=== PATIENT | female | born 1950 | race Caucasian/White ===

== ENCOUNTER 2021-08-03 09:33 | Inpatient (IN) ==
[2021-08-03 09:51] VITALS: BMI 34.2
--- NOTE | 2021-08-03 10:49 | ED.ABDFE ---
HPI Time Seen Time Seen by Provider: 08/03/21 10:48 PCP Primary Care Physician: OBDULIA NAVA Complaint Doctors Chief Complaint Comments: 71 y/o female presents for evaluation. Having lower abdominal pain x 3 days. Cramping sensation, across lower abdomen. Wax/wanes, no radiation. Has had low grade fever. Having nausea, vomiting. Vomited a lot 3 days ago. Had some diarrhea initially. Denies urinary symptoms, with some decreased urination. Seen in [place] [facility] 2 days ago, diagnosed with diverticulosis (no -itis on CT scan). Was prescribed levaquin, but didn't not fill. Has a distant h/o diverticulitis. Chief Complaint:: PT STATES THAT SHE HAS HAD N/V/D WITH INTERMITTENT LOWER ABDOMEN CRAMPING SINCE MONDAY AFTERNOON. PT WAS SEEN IN ER IN [place] MONDAY AND DIAGNOSED WITH DIVERTICULOSIS BUT HAS NOT HAD PRESCRIPTIONS FILLED. COVID-19 Coronavirus risk:travel/contact w/high risk person: No Has patient experienced Coronavirus symptoms: No Reviewed Nurses Notes Review: Yes Source History Provided: Patient Mode of arrival Mode of Arrival: Wheelchair Timing Onset of Chief Complaint: 07/31/21 PMH PMH Past Medical History: Yes Past Medical History: Coronary Artery Disease, CVA, Diabetes and Hypertension Past Surgical History: Yes Surgical History: Past Surgical History Comment: HERNIA REPAIR X 3 Family History History of Family Medical Conditions: Yes Family Medical History: Diabetes Mellitus and Hypertension Family Medical History Comment: CVA Social History Does patient currently use any type of tobacco product: No Have you used tobacco products in the last 12 months: No Type of Tobacco Use: None Does any household member use tobacco: No Alcohol Use: None Do you use any recreational Drugs:: No Lives With: Family Lives Where: Home Infectious screening In the last 2 months have you had wt loss of >10#?: NO Have you had fever, night sweats or hemotysis?: No Have you traveled outside the country in the last 6 months?: No Isolation: Standard ROS Review of Systems Constitutional: Fever and Weakness Eyes: No Symptoms Reported ENTM: No Symptoms Reported Respiratoy: No Symptoms Reported Cardiovascular: No Symptoms Reported Gastrointestinal/Abdominal: Abdominal Pain, Nausea and Vomiting Genitourinary: No Symptoms Reported Neurological: Weakness Musculoskeletal: No Symptoms Reported Integumentary: No Symptoms Reported Hematologic/Lymphatic: No Symptoms Reported Psychiatric: No Symptoms Reported All Other Systems: Reviewed and Negative PE Vital Signs Vitals: Temperature 97.3 F Pulse Rate [Left] 62 Pulse Rate 71 Respiratory Rate 18 Blood Pressure [Left Arm] 174/76 Blood Pressure 211/85 O2 Sat by Pulse Oximetry 96 General Limitations: No Limitations General Appearance: Alert and Other (appears uncomfortable) Head Head Exam: Normal Inspection Eyes Eye exam: PERRL and EOMI ENT ENT Exam: Normal Exam and Mucous Membranes Moist Neck Neck Exam: Normal Inspection and Full ROM Chest Chest Inspection: Normal Inspection Respiratory Respiratory Exam: Normal Lung Sounds Bilat; negative Accessory Muscle Use and Respiratory Distress Respiratory Exam: Bilateral: Clear to Auscultation Cardiovascular Cardiovascular Exam: Regular Rate, Normal Rhythm and Normal Heart Sounds Abdominal Exam Abdominal Exam: Normal Bowel Sounds, Soft and Tenderness (across lower abdomen, no guarding, +/- rebound) Back Back Exam: Full ROM; negative Tenderness, (R) CVA Tenderness and (L) CVA Tenderness Extremeties Extremities Exam: Normal Inspection and Full ROM Neurologic Neurological Exam: Alert, Oriented X3 and CN II-XII Intact; negative Motor Sensory Deficit Psychiatric Psychiatric Exam: Normal Affect Skin Skin Exam: Warm and Dry MDM Differential Diagnosis Differential Diagnosis- Considerations may include:: Appendicitis, Diverticular disease, Gastroenteritis, Ischemic Bowel, Pancreatitis and Urinary tract infection COURSE Treatment Treatment: 71 y/o female ill with vomiting, diarrhea and abdominal pain over the past 3 days. BP is elevated. W/u iniitiated. Pt given IV fluids, IV toradol/zofran. Still nauseous, given IV protonix, additional IV zofran , plus IV protonix, and po carafate. BP was trying to improve, up again, givne IV labetalol. 1520 - doing better, looks more comfortable. Labs overall acceptable - sodium slightly low at 132, U/A with 2+ ketones. CT abd/pelvis without acute abnormalities. Discussed findings with pt. Recommend observation admission to make sure symptoms are controlled, as well as watching her BP. Discussed with Dr Mishra, accepts the admission. ROR Labs Reviewed Laboratory Results Reviewed?: Yes Result Diagrams: 08/03/21 11:00 08/03/21 11:00 Laboratory: WBC 8.5 X10^3/uL (3.6-10.0) 08/03/21 11:00 RBC 3.82 X10^6/uL (3.5-5.4) 08/03/21 11:00 Hgb 11.2 g/dL (12.0-16.0) L 08/03/21 11:00 Hct 32.7 % (36.0-47.0) L 08/03/21 11:00 MCV 85.6 fL (80.0-100.0) 08/03/21 11:00 MCH 29.3 pg (27.0-34.0) 08/03/21 11:00 MCHC 34.3 g/dL (33.0-35.0) 08/03/21 11:00 RDW 16.0 % (11.6-16.5) 08/03/21 11:00 Plt Count 269 X10^3/uL (150.0-450.0) 08/03/21 11:00 MPV 8.0 fL (7.4-11.0) 08/03/21 11:00 Neut % (Auto) 65.5 % (42.0-75.0) 08/03/21 11:00 Lymph % (Auto) 23.0 % (21.0-51.0) 08/03/21 11:00 Winn % (Auto) 9.9 % (0.0-13.0) 08/03/21 11:00 Eos % (Auto) 0.7 % (0.9-2.9) L 08/03/21 11:00 Baso % (Auto) 0.9 % (0.2-1.0) 08/03/21 11:00 Neut # (Auto) 5.6 x10^3/uL (2.2-4.8) H 08/03/21 11:00 Lymph # (Auto) 2.0 X10^3/uL (1.3-2.9) 08/03/21 11:00 Winn # (Auto) 0.8 x10^3/uL (0.3-0.8) 08/03/21 11:00 Eos # (Auto) 0.1 x10^3/uL (0.0-0.2) 08/03/21 11:00 Baso # (Auto) 0.1 X10^3/uL (0.0-0.1) 08/03/21 11:00 Absolute Nucleated RBC 0.0 /100WBC 08/03/21 11:00 Sodium 132 mmol/L (136-145) L 08/03/21 11:00 Corrected Sodium TNP 08/03/21 11:00 Potassium 4.3 mmol/L (3.5-5.1) 08/03/21 11:00 Chloride 96 mmol/L (98-107) L 08/03/21 11:00 Carbon Dioxide 29.9 mmol/L (21-32) 08/03/21 11:00 BUN 12 mg/dL (7-18) 08/03/21 11:00 Creatinine 0.65 mg/dL (0.55-1.02) 08/03/21 11:00 Est GFR (MDRD) Af Amer > 60 (>60) 08/03/21 11:00 Est GFR (MDRD) Non-Af > 60 (>60) 08/03/21 11:00 Glucose 107 mg/dL (65-99) H 08/03/21 11:00 Calcium 9.2 mg/dL (8.5-10.1) 08/03/21 11:00 Corrected Calcium TNP 08/03/21 11:00 Total Bilirubin 0.90 mg/dL (0.2-1.0) 08/03/21 11:00 AST 30 Units/L (15-37) 08/03/21 11:00 ALT 13 Units/L (12-78) 08/03/21 11:00 Alkaline Phosphatase 78 Units/L (46-116) 08/03/21 11:00 Total Protein 7.5 g/dL (6.4-8.2) 08/03/21 11:00 Albumin 3.6 g/dL (3.4-5.0) 08/03/21 11:00 Globulin 3.9 g/dL (2.5-4.5) 08/03/21 11:00 Albumin/Globulin Ratio 0.9 Ratio (1.1-2.1) L 08/03/21 11:00 Lipase 409 Units/L (73-393) H 08/03/21 11:00 Specimen Type Clean catch urine 08/03/21 11:24 Urine Color Yellow (YELLOW) 08/03/21 11:24 Urine Appearance Clear (CLEAR) 08/03/21 11:24 Urine pH 6.5 (5.0 - 8.0) 08/03/21 11:24 Ur Specific [place] 1.010 (1.000-1.030) 08/03/21 11:24 Urine Protein 3+ (NEGATIVE) 08/03/21 11:24 Urine Glucose (UA) Negative (NEGATIVE) 08/03/21 11:24 Urine Ketones 2+ (NEGATIVE) 08/03/21 11:24 Urine Blood Negative (NEGATIVE) 08/03/21 11:24 Urine Nitrite Negative (NEGATIVE) 08/03/21 11:24 Urine Bilirubin Negative (NEGATIVE) 08/03/21 11:24 Urine Urobilinogen Normal (NORMAL) 08/03/21 11:24 Ur Leukocyte Esterase 1+ (NEGATIVE) 08/03/21 11:24 Urine RBC None seen /HPF (0-3) 08/03/21 11:24 Urine WBC 0-2 /HPF (0-5) 08/03/21 11:24 Ur Squamous Epith Cells Rare /HPF (NEGATIVE) 08/03/21 11:24 Amorphous Sediment Trace /HPF (NEGATIVE) 08/03/21 11:24 Urine Bacteria Negative /HPF (NEGATIVE) 08/03/21 11:24 Ur Culture Indicated? No/not indicated 08/03/21 11:24 Other Results Comments: Labs overall acceptable. XRAY XRAY Interpreted by: Both X-ray Results: CT abd/pelvis without acuteabnormalities. Opioid Opioid Risk Tool Total: 0 Total Score Risk Category: Low Risk Copyright: Michael BRAGA predicting aberrant behaviors Diagnosis Discharge Problem: Viral gastroenteritis, Hypertensive urgency
[2021-08-03] MEDS ORDERED: NS 500 ML IV 500 ML IV ONE ×2 (10:52→10:58)
[2021-08-03] MEDS ORDERED: TORADOL 30 MG VIAL IVP ONE (10:52)
[2021-08-03] MEDS ORDERED: ZOFRAN INJ 4 MG VIAL IVP ONE ×2 (10:52→12:19)
[2021-08-03] MEDS ORDERED: TORADOL 30 MG VIAL ONE (10:58)
[2021-08-03] MEDS ORDERED: ZOFRAN INJ 4 MG VIAL ONE ×2 (10:58→12:27)
[2021-08-03 11:12] LABS: BASOPHILS # (AUTO) 0.1 X10^3/uL (0.0-0.1); BASOPHILS % (AUTO) 0.9 % (0.2-1.0); EOSINOPHILS # (AUTO) 0.1 x10^3/uL (0.0-0.2); EOSINOPHILS % (AUTO) 0.7 % (0.9-2.9); HEMATOCRIT 32.7 % (36.0-47.0); HEMOGLOBIN 11.2 g/dL (12.0-16.0); MEAN CORPUSCULAR HEMOGLOBIN 29.3 pg (27.0-34.0); MEAN CORPUSCULAR HGB CONC 34.3 g/dL (33.0-35.0); MEAN CORPUSCULAR VOLUME 85.6 fL (80.0-100.0); MONOCYTES # (AUTO) 0.8 x10^3/uL (0.3-0.8); MONOCYTES % (AUTO) 9.9 % (0.0-13.0); NEUTROPHILS # (AUTO) 5.6 x10^3/uL (2.2-4.8); NEUTROPHILS % (AUTO) 65.5 % (42.0-75.0); RED BLOOD COUNT 3.82 X10^6/uL (3.5-5.4); WHITE BLOOD COUNT 8.5 X10^3/uL (3.6-10.0)
[2021-08-03 11:24] LABS: ALANINE AMINOTRANSFERASE 13 Units/L (12-78); ALBUMIN 3.6 g/dL (3.4-5.0); ALKALINE PHOSPHATASE 78 Units/L (46-116); ASPARTATE AMINO TRANSFERASE 30 Units/L (15-37); BLOOD UREA NITROGEN 12 mg/dL (7-18); CALCIUM 9.2 mg/dL (8.5-10.1); CARBON DIOXIDE 29.9 mmol/L (21-32); CHLORIDE 96 mmol/L (98-107); CREATININE 0.65 mg/dL (0.55-1.02); LIPASE 409 Units/L (73-393); SODIUM 132 mmol/L (136-145); TOTAL PROTEIN 7.5 g/dL (6.4-8.2); eGFR NON BLACK RACES > 60 (>60)
[2021-08-03 11:38] LABS: BILIRUBIN,URINE NEGATIVE (NEGATIVE); BLOOD/HEMOGLOBIN,URINE NEGATIVE (NEGATIVE); GLUCOSE, URINE NEGATIVE (NEGATIVE); KETONES,URINE 2+ (NEGATIVE); LEUKOCYTE ESTERASE ,URINE 1+ (NEGATIVE); NITRITES,URINE NEGATIVE (NEGATIVE); PH,URINE 6.5 (5.0 - 8.0); PROTEIN,URINE 3+ (NEGATIVE); UROBILINOGEN,URINE NORMAL (NORMAL)
[2021-08-03 12:00] LABS: APPEARANCE,URINE CLEAR (CLEAR); BACTERIA,URINE NEGATIVE /HPF (NEGATIVE); COLOR,URINE YELLOW (YELLOW); RBC,URINE NONE SEEN /HPF (0-3); SQUAMOUS EPITHELIAL CELL,UR RARE /HPF (NEGATIVE)
[2021-08-03] MEDS ORDERED: PROTONIX INJ 40 MG VIAL IVP ONE (12:19)
[2021-08-03] MEDS ORDERED: CARAFATE ORAL SUSP PO ONE ×2 (12:20→12:27)
[2021-08-03] MEDS ORDERED: PROTONIX INJ 40 MG VIAL ONE (12:27)
[2021-08-03] MEDS ORDERED: NS 100 ML IV 100 ML ONE (12:32)
[2021-08-03] MEDS ORDERED: NORMODYNE INJ 20 MG VIAL IVP ONE (12:43)
[2021-08-03] MEDS ORDERED: MORPHINE SULFATE INJ 4 MG IVP ONE (12:43)
[2021-08-03] MEDS ORDERED: MORPHINE SULFATE INJ 4 MG ONE (13:08)
[2021-08-03] MEDS ORDERED: NORMODYNE INJ 20 MG VIAL ONE (13:08)
--- NOTE | 2021-08-03 13:27 | CT ---
HISTORY: [Headache with symptoms of CVA]Noncontrast head CT examination.Comparison: [None].Technique:Multiple axial images of the brain were obtained from the skull base to the vertex without administration of IV contrast.Findings: There is evidence for a left inferior cerebellar hemisphere ischemic event/CVA observed on this exam. There is moderate sulcal and cisternal prominence as well as atherosclerotic change in the proximal intracranial carotid and vertebral arteries, which is not out of proportion to the patient's stated age. There is diffuse CT density alteration seen in the periventricular white matter of the high and mid-convexity, which is likely in the setting of small vessel disease and not out of proportion to the patient's stated age. There is [mild bilateral ex vacuo] ventricular dilatation without evidence for hydrocephalus or herniation syndrome. No midline shift is evident. No acute intraparenchymal hemorrhage or mass can be identified. If there remains a strong concern for any intra-cranial neoplasm, then follow-up with CT or MR imaging of the brain would be more sensitive to exclude any intra-cranial mass lesion. No extra-axial fluid collections are seen. No additional alteration in the attenuation of the brain parenchyma can be identified to suggest acute or subacute ischemic change. However, if clinical symptoms are concerning for an acute CVA, then follow-up MRI with DWI sequencing is recommended. The extracranial structures [are unremarkable].IMPRESSION:Left inferior cerebellar hemispheric ischemic event/CVA. This may be subacute or chronic in nature but should be correlated MR imaging of the brain with diffusion-weighted sequencing for further evaluation/dating purposes. No acute intracranial hemorrhage is identified.Chronic appearing periventricular white matter microvascular disease and age-appropriate cerebral senescent changes seen.Electronically signed by: RAMÓN HARTMAN III (August 03, 2021 13:25:42)
--- NOTE | 2021-08-03 13:36 | CT ---
HISTORYLower abdominal painSTUDYCT abdomen pelvis with contrastTechnique: Axial post-contrast images with coronal and sagittal reformats. Dose reduction procedures were used with mA/kv adjusted for body size.COMPARISONCT abdomen pelvis with contrast 08/01/2021 [facility] lung bases are clear. The heart is enlarged. The liver, spleen, adrenal glands, and pancreas are within normal limits. No opaque stones are present within the gallbladder. The kidneys are unobstructed and without stones. No ureteral calculi are identified. Calcific atherosclerotic changes present in a nondilated abdominal aorta. No intraperitoneal or retroperitoneal lymphadenopathy of significance is identified. The appendix is not identified with absolute certainty. There are no secondary signs of appendicitis present. There are no findings suggestive of enteritis, colitis, or diverticulitis. There is diverticulosis of the distal descending and sigmoid colon without evidence for diverticulitis. (The history given above re: Diverticulitis is incorrect as no diverticulitis was visualized or described on the CT abdomen pelvis 08/01/2021) there is bulging of the lower anterior abdominal wall containing unobstructed small bowel and mesenteric fat but demonstrating no peritoneal defect to suggest ventral hernia. No pelvic masses, pelvic fluid, or pelvic lymphadenopathy is identified. No bladder abnormality is identified. No lytic or blastic skeletal lesions of significance are identified.IMPRESSIONNo definite acute inflammatory abnormality identified in the abdomen or pelvisDiverticulosis of the distal descending and sigmoid colon without evidence for diverticulitis. (See note above with reference to the inaccurate history of diverticulitis )Bulge in the midline lower abdominal wall containing mesenteric fat and uncomplicated small bowel however there is no peritoneal defect to suggest a true ventral hernia.Electronically signed by: VITOR MCDONALD (August 03, 2021 13:35:12)
[2021-08-03] MEDS ORDERED: LABETALOL HCL IVP ONE (15:42)
[2021-08-03] MEDS ORDERED: ZOFRAN INJ 4 MG VIAL IVP PRN (16:10)
[2021-08-03] MEDS: D5 1/2 NS 1,000 ML 1,000 ML IV SCH (17:41)
[2021-08-03] MEDS ORDERED: CATAPRES TAB 0.1 MG PO SCH (21:00)
[2021-08-03] MEDS: PEPCID 20 MG VIAL 20 MG in NS 50 ML IV 50 ML IV SCH (21:53)
[2021-08-03] MEDS: PROTONIX INJ 40 MG VIAL IVP SCH (21:53)
[2021-08-03] MEDS: NORVASC TAB 10 MG PO SCH (21:54)
[2021-08-03] MEDS: ZANAFLEX PO SCH (21:54)
[2021-08-03] MEDS: XALATAN OP SCH (21:54)
[2021-08-03] MEDS: LANTUS SC SCH (21:55)
[2021-08-04] MEDS: TYLENOL 325 MG TAB PO PRN ×2 (03:12→14:39)
[2021-08-04 05:03] LABS: BASOPHILS % (AUTO) 0.7 % (0.2-1.0); EOSINOPHILS # (AUTO) 0.2 x10^3/uL (0.0-0.2); EOSINOPHILS % (AUTO) 2.3 % (0.9-2.9); HEMATOCRIT 28.7 % (36.0-47.0); LYMPHOCYTES # (AUTO) 2.9 X10^3/uL (1.3-2.9); MEAN CORPUSCULAR HGB CONC 34.9 g/dL (33.0-35.0); MEAN CORPUSCULAR VOLUME 86.1 fL (80.0-100.0); MEAN PLATELET VOLUME 8.1 fL (7.4-11.0); MONOCYTES # (AUTO) 0.8 x10^3/uL (0.3-0.8); MONOCYTES % (AUTO) 11.4 % (0.0-13.0); NEUTROPHILS # (AUTO) 3.5 x10^3/uL (2.2-4.8); NEUTROPHILS % (AUTO) 46.6 % (42.0-75.0); RED BLOOD COUNT 3.34 X10^6/uL (3.5-5.4); WHITE BLOOD COUNT 7.4 X10^3/uL (3.6-10.0)
[2021-08-04] MEDS: D5 1/2 NS 1,000 ML 1,000 ML IV SCH ×2 (05:11→20:02)
[2021-08-04 05:21] LABS: ALANINE AMINOTRANSFERASE 10 Units/L (12-78); ALBUMIN 3.1 g/dL (3.4-5.0); ALKALINE PHOSPHATASE 68 Units/L (46-116); ASPARTATE AMINO TRANSFERASE 14 Units/L (15-37); BLOOD UREA NITROGEN 14 mg/dL (7-18); CALCIUM 8.6 mg/dL (8.5-10.1); CARBON DIOXIDE 27.6 mmol/L (21-32); CHLORIDE 98 mmol/L (98-107); COR CA(FOR HYPOALB) 9.3 mg/dL (8.5-10.1); CREATININE 0.89 mg/dL (0.55-1.02); SODIUM 132 mmol/L (136-145); TOTAL PROTEIN 6.3 g/dL (6.4-8.2); eGFR NON BLACK RACES > 60 (>60)
[2021-08-04] MEDS ORDERED: MICRO K EXTEN CAP 10 MEQ PO PRN (06:11)
[2021-08-04] MEDS ORDERED: KLOR-CON PO PRN (06:11)
[2021-08-04] MEDS ORDERED: K-RIDER 10 MEQ/NS 100 ML 10 MEQ/100 ML BAG IV PRN (06:11)
[2021-08-04] MEDS ORDERED: POTASSIUM CHLORIDE LIQ 20 MEQ UDC PO PRN (06:11)
[2021-08-04] MEDS: K-DUR TAB 20 MEQ PO PRN (06:34)
[2021-08-04] MEDS: PEPCID 20 MG VIAL 20 MG in NS 50 ML IV 50 ML IV SCH ×2 (08:34→20:02)
[2021-08-04] MEDS: PROTONIX INJ 40 MG VIAL IVP SCH ×2 (08:34→20:02)
[2021-08-04] MEDS: TOPROL XL PO SCH (08:34)
[2021-08-04] MEDS: ULTRAM PO PRN ×2 (08:35→19:27)
[2021-08-04] MEDS: MAGNESIUM SULFATE 1 GRAM/100 mL PREMIX 1 G/100 ML BAG IV PRN ×2 (09:48→11:00)
[2021-08-04] MEDS: NYSTATIN POWDER TOP SCH ×2 (11:15→20:03)
[2021-08-04] MEDS ORDERED: NYSTATIN POWDER ONE (11:16)
--- NOTE | 2021-08-04 15:47 | MRI ---
HISTORYf/u ct headSTUDYBRAIN W/O CONCOMPARISONhead CT dated 08/03/2021TECHNIQUEMultiplanar multi-sequence MRI of the brain was obtained utilizing standard departmental protocol. Sagittal and axial T1 weighted images were obtained. Axial T2 and flair weighted images were performed as well. Axial diffusion weighted and ADC trace mapping was performed.FINDINGSThere is mild central and peripheral volume loss, there is no evidence of acute infarct. There is an old left cerebellar infarctThe main arterial and venous flow voids are present. There is no abnormal signal in the mastoid cells and included paranasal sinuses. No orbital masses.There is normal midline anatomy, there is a partial empty sella, the cervicocranial junction is unremarkable.No nasopharyngeal masses. FLAIR images demonstrate mild periventricular and patchy subcortical areas of high signal. There is minimal high signal in the midbrain.There is no abnormal intraparenchymal susceptibility artifact.IMPRESSIONNo acute infarcts. 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 Mild patchy periventricular and subcortical white matter changes likely microvascular ischemic disease in these age population.Electronically signed by: Elba Morrison (Aug 04, 2021 15:45:37)
[2021-08-04] MEDS ORDERED: CATAPRES-TTS-1 TD SCH (17:00)
--- NOTE | 2021-08-04 18:22 | DR.H&P ---
H&P - History & Physical for Day of: H&P Date: 08/03/21 - Chief Complaint Chief Complaint: ABDOMINAL PAIN, N/V/D, HEADACHE, WEAKNESS - History of Present Illness History of Present Illness: IS A 71 YEAR OLD PATIENT OF OBDULIA NAVA. SHE PRESENTED TO THE ER WITH COMPLAINTS OF ABDOMIANL PAIN, NAUSEA, AND VOMITING X 3 DAYS. SHE DESCRIBES PAIN CRAMPING, SUBRAPUBIC, AND RATES PAIN A 6/10. SHE ALSO COMPLAINS OF LOW GRADE FEVER, HEADACHE, DIARRHEA, AND DECREASED URINE OUTPUT. SHE WAS SEEN AT [facility] ER TWO DAYS AGO AND WAS DIAGNOSED WITH DIVERTICULOSIS. NO DIVERTICULITIS WAS SEEN ON CT SCAN. SHE WAS PRESCRIBED LEVAQUIN, BUT DID NOT FILL IT. HER PMH INCLUDES: CAD, CVA, DM II, HTN, C- SECTION, HERNIA REPAIR X 3. ON ARRIVAL, HER VITALS WERE: 97.3-71-22-98%-211/85. LABS WERE OBTAINED. WBC 8.5, RBC 3.82, HGB 11.2, HCT 32.7, SODIUM 132, POTASSIUM 4.3, CHLORIDE 96, CARBON DIOXIDE 29.9, BUN 12, CREATININE 0.65, GLUCOSE 107, CALCIUM 9.2, TOTAL BILI 0.90, AST 30, ALT 13, ALK PHOS 78, TOTAL PROTEIN 7.5, ALBUMIN 3.6, LIPASE 409. URINALYSIS OBTAINED AND REVEALED: WBC 0-2, RBC NONE SEE, LEUKOCYTES 1+, BACTERIA TRACE. COVID-19 NEGATIVE. AN ABDOMEN/PELVIS CT WITH CONTRAST WAS OBTAINED AND REVEALED: No definite acute inflammatory abnormality identified in the abdomen or pelvis. Diverticulosis of the distal descending and sigmoid colon without evidence for diverticulitis. Bulge in the midline lower abdominal wall containing mesenteric fat and uncomplicated small bowel however there is no peritoneal defect to suggest a true ventral hernia. A BRAIN CT WAS OBTAINED DUE TO COMPLAINTS OF HEADACHES AND WEAKNESS. IT REVEALED: Left inferior cerebellar hemispheric ischemic event/CVA. This may be subacute or chronic in nature but should be correlated MR imaging of the brain with diffusion-weighted sequencing for further evaluation/dating purposes. No acute intracranial hemorrhage is identified. Chronic appearing periventricular white matter microvascular disease and age-appropriate cerebral senescent changes seen. SHE WAS GIVEN LABETALOL 10MG IV X 1 IN THE ER DUE TO ELEVATED BLOOD PRESSURE. BP DECREASED TO 176/81. WHILE IN THE ER, SHE WAS ALSO GIVEN A NORMAL SALINE BOLUS, TORADOL 30MG IV X 1, ZOFRAN 4MG IV X 1, PROTONIX 40MG IV X 1, CARAFATE 1G PO X 1, MORPHINE 4MG IV X 1. SHE WAS ADMITTED TO THE HOSPITAL FOR FURTHER EVALUATION AND TREATMENT OF GASTROENTERITIS, HYPERTENSIVE URGENCY. SHE WAS STARTED ON D5/12 NS AT 80 ML/HR, THE POTASSIUM AND MAGNESIUM PROTOCOLS, PEPCID 20MG IV Q12H X 1, PROTONIX 40MG IV BID, ZOFRAN 4MG IV Q6H PRN, AND HER HOME MEDICATIONS OF NORVASC, CLONIDINE, LANTUS, XALATAN DROPS, TOPROL, ZANAFLEX, AND ULTRAM WERE RESUMED. OTHERWISE, WE PLAN TO FOLLOW-UP WITH AM LABS AND CONTINUE TO MONITOR. TIME SPENT ON CLINICAL ASSESSMENT, REVIEWING LABS AND IMAGING, DECISION MAKING, AND DOCUMENTATION GREATER THAN 75 MINUTES. - Past Medical History Past Medical History: Coronary Artery Disease, Hypertension, Diabetes, CVA - Past Surgical History Surgical History: , Other - Family History Family Medical History: Diabetes Mellitus, Cancer, [place], Hypertension - Social History Does patient currently use any type of tobacco product: No Have you used tobacco products in the last 12 months: No Type of Tobacco Use: None Does any household member use tobacco: No Alcohol Use: None Drug Use: None - Medications Home Medications: codeine Allergy (Verified 08/03/21 09:51) lisinopril Allergy (Verified 08/03/21 09:51) Sulfa (Sulfonamide Antibiotics) [SULFA] Allergy (Verified 08/03/21 09:51) CONTINUE taking the following medications amlodipine 10 mg PO HS 08/03/21 [History] clonidine HCl 0.1 mg PO HS 08/03/21 [History] dulaglutide [Trulicity] 1.5 mg SUBCUT WEEKLY 08/03/21 [History] insulin glargine [Lantus Solostar U-100 Insulin] 25 unit SUBCUT HS 08/03/21 [History] latanoprost 1 drp OPHTHALMIC (EYE) HS 08/03/21 [History] metoprolol succinate 50 mg PO DAILY 08/03/21 [History] naproxen 375 mg PO BID 08/03/21 [History] tizanidine 4 mg PO HS 08/03/21 [History] - Review of Systems Constitutional: Fever, Weakness Eyes: No Symptoms Reported ENT: No Symptoms Reported Respiratory: No Symptoms Reported Cardiovascular: No Symptoms Reported Gastrointestinal: See HPI, Nausea, Vomiting, Abdominal Pain, Diarrhea Genitourinary: No Symptoms Reported Musculoskeletal: No Symptoms Reported Skin: No Symptoms Reported Neurological: Weakness, Other (HEADACHE) - Physical Exam Vital Signs: Temperature 97.6 F Pulse Rate [Left] 62 Pulse Rate 60 Respiratory Rate 20 Blood Pressure [Left Arm] 174/76 Blood Pressure 202/98 O2 Sat by Pulse Oximetry 99 Oriented: Normal Eyes: Normal Ear: Normal Nose: Normal Throat: Normal Respiratory: Diminished Throughout Cardiovascular: Normal : Normal Auscultation: Bowel Sounds: Normal Palpation: Normal Tenderness: Suprapubic, Moderate Skin: Decreased Turgur Musculoskeletal: Normal Psychiatric: Normal Mood Description: Calm Affect: Normal Speech Pattern: Clear - Assessment/Plan (1) Viral gastroenteritis Status: Acute Plan: ADMIT, D5/12 NS AT 80 ML/HR, THE POTASSIUM AND MAGNESIUM PROTOCOLS, PEPCID 20MG IV Q12H X 1, PROTONIX 40MG IV BID, ZOFRAN 4MG IV Q6H PRN, AND HER HOME MEDICATIONS OF NORVASC, CLONIDINE, LANTUS, XALATAN DROPS, TOPROL, ZANAFLEX, AND ULTRAM WERE RESUMED. (2) Hypertensive urgency Status: Acute - Allergies Allergies/Adverse Reactions: Allergies Allergy/AdvReac Type Severity Reaction Status Date / Time codeine Allergy Verified 08/03/21 09:51 lisinopril Allergy Verified 08/03/21 09:51 Sulfa (Sulfonamide Allergy Verified 08/03/21 09:51 Antibiotics) [SULFA]
[2021-08-04] MEDS ORDERED: COLACE CAP 100 MG PO ONE (19:03)
[2021-08-04] MEDS ORDERED: MAALOX or MYLANTA PO PRN (19:38)
[2021-08-04] MEDS ORDERED: VISTARIL PO PRN (19:38)
[2021-08-04] MEDS: COLACE CAP 100 MG PO PRN (20:02)
[2021-08-04] MEDS: ZANAFLEX PO SCH (20:03)
[2021-08-04] MEDS: NORVASC TAB 10 MG PO SCH (20:03)
[2021-08-04] MEDS: XALATAN OP SCH (20:04)
[2021-08-04] MEDS: CHECK PATCH XX SCH (20:53)
[2021-08-04] MEDS: LANTUS SC SCH (20:53)
[2021-08-04] MEDS ORDERED: APRESOLINE INJ 20 MG VIAL IVP ONE (22:08)
[2021-08-04] MEDS ORDERED: APRESOLINE INJ 20 MG VIAL ONE (22:17)
[2021-08-05] MEDS: ULTRAM PO PRN ×2 (03:17→08:28)
[2021-08-05] MEDS: D5 1/2 NS 1,000 ML 1,000 ML IV SCH ×3 (05:06→20:31)
[2021-08-05 05:10] LABS: BASOPHILS % (AUTO) 0.6 % (0.2-1.0); EOSINOPHILS # (AUTO) 0.1 x10^3/uL (0.0-0.2); EOSINOPHILS % (AUTO) 1.6 % (0.9-2.9); HEMATOCRIT 29.7 % (36.0-47.0); HEMOGLOBIN 10.4 g/dL (12.0-16.0); LYMPHOCYTES # (AUTO) 2.4 X10^3/uL (1.3-2.9); LYMPHOCYTES % (AUTO) 31.5 % (21.0-51.0); MEAN CORPUSCULAR VOLUME 85.8 fL (80.0-100.0); MONOCYTES # (AUTO) 0.8 x10^3/uL (0.3-0.8); MONOCYTES % (AUTO) 10.3 % (0.0-13.0); NEUTROPHILS # (AUTO) 4.3 x10^3/uL (2.2-4.8); RED BLOOD COUNT 3.46 X10^6/uL (3.5-5.4); RED CELL DISTRIBUTION WIDTH 16.2 % (11.6-16.5); WHITE BLOOD COUNT 7.7 X10^3/uL (3.6-10.0)
[2021-08-05 05:22] LABS: ALANINE AMINOTRANSFERASE 15 Units/L (12-78); ALKALINE PHOSPHATASE 71 Units/L (46-116); ASPARTATE AMINO TRANSFERASE 15 Units/L (15-37); BLOOD UREA NITROGEN 8 mg/dL (7-18); CALCIUM 8.7 mg/dL (8.5-10.1); CARBON DIOXIDE 26.9 mmol/L (21-32); CHLORIDE 101 mmol/L (98-107); COR CA(FOR HYPOALB) 9.5 mg/dL (8.5-10.1); CREATININE 0.67 mg/dL (0.55-1.02); MAGNESIUM 1.8 mg/dL (1.7-2.9); SODIUM 133 mmol/L (136-145); TOTAL PROTEIN 6.1 g/dL (6.4-8.2); eGFR NON BLACK RACES > 60 (>60)
[2021-08-05] MEDS: MAGNESIUM SULFATE 1 GRAM/100 mL PREMIX 1 G/100 ML BAG IV PRN ×2 (06:07→08:36)
[2021-08-05] MEDS: CHECK PATCH XX SCH ×2 (08:26→20:32)
[2021-08-05] MEDS: PROTONIX INJ 40 MG VIAL IVP SCH ×2 (08:27→20:35)
[2021-08-05] MEDS: PEPCID 20 MG VIAL 20 MG in NS 50 ML IV 50 ML IV SCH ×2 (08:27→20:33)
[2021-08-05] MEDS: TOPROL XL PO SCH (08:28)
[2021-08-05] MEDS: K-DUR TAB 20 MEQ PO PRN (08:28)
[2021-08-05] MEDS: NYSTATIN POWDER TOP SCH ×2 (08:40→20:33)
[2021-08-05] MEDS ORDERED: CATAPRES-TTS-2 TD SCH (09:00)
[2021-08-05] MEDS ORDERED: PHENERGAN INJ 25 MG IM PRN (09:57)
[2021-08-05] MEDS ORDERED: MORPHINE SULFATE INJ 2 MG INJ IVP PRN (10:02)
[2021-08-05 11:07] LABS: AMYLASE 76 Units/L (25-115); CKMB % 2.4 % (<4); CREATINE KINASE 41 Units/L (26-192); CREATINE KINASE MB < 1.0 ng/mL (0-4.0)
--- NOTE | 2021-08-05 13:29 | PCM.PROG ---
Progress Note - Progress Note for Day of Date of Exam: 08/05/21 - Subjective Subjective: WAS ADMITTED FOR TREATMENT OF VIRAL GASTROENTERITIS AND HYPERTENSIVE URGENCY. TODAY, SHE IS ALERT, LYING IN BED ON MORNING ROUNDS. SHE CONTINUES WITH COMPLAINTS OF DIFFUSE ABDOMINAL PAIN. PAIN IS WORSE AT THE RUQ. SHE ALSO CONTINUES TO HAVE SEVERE NAUSEA THIS MORNING. STAFF REPORTS THAT HER BLOOD PRESSURE HAS BEEN ELEVATED THIS MORNING AND THROUGHOUT THE NIGHT. A CLONIDINE PATCH WAS ADDED YESTERDAY AFTERNOON. ON EXAMINATION, HEART IS REGULAR IN RATE AND RHYTHM. BILATERAL LUNGS NOTED WITH DIMINISHED LUNG SOUNDS THROUGHOUT. ABDOMEN IS ROUND, SOFT, AND NOTED WITH DIFFUSE TENDERNESS. BOWEL SOUNDS ARE HYPOACTIVE. HER VITALS THIS MORNING ARE: 98.1-74-17-94%-202/86. BLOOD PRESSURE HAS PERSISTENTLY BEEN HIGH THROUGHOUT THE NIGHT. LABS WERE REPEATED THIS MORNING. WBC 7.7, RBC 3.46, HGB 10.4, HCT 29.7, SODIUM 133, POTASSIUM 3.7, CHLORIDE 101, BUN 8, CREATININE 0.67, GLUCOSE 99, MAGNESIUM 1.8, AST 15, ALT 15, ALK PHOS 71, TOTAL PROTEIN 6.1, ALBUMIN 3.0. A BRAIN MRI WAS OBTAINED YESTERDAY DUE TO SUSPICOUS BRAIN CT FINDINGS. MRI REVEALED: No acute infarcts. 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 SHE IS CURRENTLY RECEIVING: D5/12 NS AT 80 ML/HR, THE POTASSIUM AND MAGNESIUM PROTOCOLS, PEPCID 20MG IV Q12H X 1, PROTONIX 40MG IV BID, ZOFRAN 4MG IV Q6H PRN, CLONIDINE 0.1MG/HR TD PATCH, AND HER HOME MEDICATIONS OF NORVASC, LANTUS, XALATAN DROPS, TOPROL, ZANAFLEX, AND ULTRAM WERE RESUMED. TODAY, WE WILL INCREASE PATCH TO 0.2MG/HR. WE WILL ADD PHENERGAN 25MG IM Q6H PRN , OBTAIN A GALLBLADDER ULTRASOUND, CONSULT (GENERAL SURGEON), AND OBTAIN CARDIAC ENZYMES AND EKGS. OTHERWISE, WE WILL FOLLOW-UP WITH AM LABS AND CONTINUE TO MONITOR. WE WILL CHANGE PATIENT TO INPATIENT STATUS TODAY. TIME SPENT ON CLINICAL ASSESSMENT, REVIEWING LABS AND IMAGING, DECISION MAKING, AND DOCUMENTATION GREATER THAN 45 MINUTES. - Past Medical Family Social History Past Med/Fam/Surg Hx: No changes since H&P Allergies: Allergies codeine Allergy (Verified 08/03/21 09:51) lisinopril Allergy (Verified 08/03/21 09:51) Sulfa (Sulfonamide Antibiotics) [SULFA] Allergy (Verified 08/03/21 09:51) - Review of Systems ROS: No change since H&P - Vital Signs and I&O's Vital Signs: Temperature 97.7 F Pulse Rate [Left] 62 Pulse Rate 75 Respiratory Rate 20 Blood Pressure [Left Arm] 174/76 Blood Pressure 200/81 O2 Sat by Pulse Oximetry 98 Intake and Output: Intake & Output 08/03/21 08/04/21 08/05/21 08/06/21 11:59 11:59 11:59 11:59 Intake Total 2045 2499 / 249 Balance 2045 457 / 891 - Physical Exam Oriented: Normal Eyes: Normal Ear: Normal Nose: Normal Throat: Normal Respiratory: Generalized, Diminished Cardiovascular: Normal : Normal Auscultation: Bowel Sounds: Normal Palpation: Normal Tenderness: Diffuse, RUQ, Moderate Skin: Normal Musculoskeletal: Normal Psychiatric: Normal Mood Description: Calm Affect: Normal Speech Pattern: Clear, Appropriate - Laboratory and Diagnostics Result Diagrams: 08/05/21 04:54 08/05/21 04:54 Labs: Laboratory WBC 7.7 X10^3/uL (3.6-10.0) 08/05/21 04:54 RBC 3.46 X10^6/uL (3.5-5.4) L 08/05/21 04:54 Hgb 10.4 g/dL (12.0-16.0) L 08/05/21 04:54 Hct 29.7 % (36.0-47.0) L 08/05/21 04:54 MCV 85.8 fL (80.0-100.0) 08/05/21 04:54 MCH 30.0 pg (27.0-34.0) 08/05/21 04:54 MCHC 35.0 g/dL (33.0-35.0) 08/05/21 04:54 RDW 16.2 % (11.6-16.5) 08/05/21 04:54 Plt Count 255 X10^3/uL (150.0-450.0) 08/05/21 04:54 MPV 8.0 fL (7.4-11.0) 08/05/21 04:54 Neut % (Auto) 56.0 % (42.0-75.0) 08/05/21 04:54 Lymph % (Auto) 31.5 % (21.0-51.0) 08/05/21 04:54 Foard % (Auto) 10.3 % (0.0-13.0) 08/05/21 04:54 Eos % (Auto) 1.6 % (0.9-2.9) 08/05/21 04:54 Baso % (Auto) 0.6 % (0.2-1.0) 08/05/21 04:54 Neut # (Auto) 4.3 x10^3/uL (2.2-4.8) 08/05/21 04:54 Lymph # (Auto) 2.4 X10^3/uL (1.3-2.9) 08/05/21 04:54 Foard # (Auto) 0.8 x10^3/uL (0.3-0.8) 08/05/21 04:54 Eos # (Auto) 0.1 x10^3/uL (0.0-0.2) 08/05/21 04:54 Baso # (Auto) 0.0 X10^3/uL (0.0-0.1) 08/05/21 04:54 Absolute Nucleated RBC 0.0 /100WBC 08/05/21 04:54 Sodium 133 mmol/L (136-145) L 08/05/21 04:54 Corrected Sodium TNP 08/05/21 04:54 Potassium 3.7 mmol/L (3.5-5.1) 08/05/21 04:54 Chloride 101 mmol/L (98-107) 08/05/21 04:54 Carbon Dioxide 26.9 mmol/L (21-32) 08/05/21 04:54 BUN 8 mg/dL (7-18) 08/05/21 04:54 Creatinine 0.67 mg/dL (0.55-1.02) 08/05/21 04:54 Est GFR (MDRD) Af Amer > 60 (>60) 08/05/21 04:54 Est GFR (MDRD) Non-Af > 60 (>60) 08/05/21 04:54 Glucose 99 mg/dL (65-99) 08/05/21 04:54 Calcium 8.7 mg/dL (8.5-10.1) 08/05/21 04:54 Corrected Calcium 9.5 mg/dL (8.5-10.1) 08/05/21 04:54 Magnesium 1.8 mg/dL (1.7-2.9) 08/05/21 04:54 Total Bilirubin 0.40 mg/dL (0.2-1.0) 08/05/21 04:54 AST 15 Units/L (15-37) 08/05/21 04:54 ALT 15 Units/L (12-78) 08/05/21 04:54 Alkaline Phosphatase 71 Units/L (46-116) 08/05/21 04:54 Creatine Kinase 41 Units/L (26-192) 08/05/21 10:30 CK-MB (CK-2) < 1.0 ng/mL (0-4.0) 08/05/21 10:30 CK/CKMB % Calc 2.4 % (<4) 08/05/21 10:30 Troponin I High Sens 12.4 ng/L (4.0-60.0) 08/05/21 10:30 Total Protein 6.1 g/dL (6.4-8.2) L 08/05/21 04:54 Albumin 3.0 g/dL (3.4-5.0) L 08/05/21 04:54 Globulin 3.1 g/dL (2.5-4.5) 08/05/21 04:54 Albumin/Globulin Ratio 1.0 Ratio (1.1-2.1) L 08/05/21 04:54 Amylase 76 Units/L (25-115) 08/05/21 10:30 Lipase 409 Units/L (73-393) H 08/03/21 11:00 Specimen Type Clean catch urine 08/03/21 11:24 Urine Color Yellow (YELLOW) 08/03/21 11:24 Urine Appearance Clear (CLEAR) 08/03/21 11:24 Urine pH 6.5 (5.0 - 8.0) 08/03/21 11:24 Ur Specific Wayne 1.010 (1.000-1.030) 08/03/21 11:24 Urine Protein 3+ (NEGATIVE) 08/03/21 11:24 Urine Glucose (UA) Negative (NEGATIVE) 08/03/21 11:24 Urine Ketones 2+ (NEGATIVE) 08/03/21 11:24 Urine Blood Negative (NEGATIVE) 08/03/21 11:24 Urine Nitrite Negative (NEGATIVE) 08/03/21 11:24 Urine Bilirubin Negative (NEGATIVE) 08/03/21 11:24 Urine Urobilinogen Normal (NORMAL) 08/03/21 11:24 Ur Leukocyte Esterase 1+ (NEGATIVE) 08/03/21 11:24 Urine RBC None seen /HPF (0-3) 08/03/21 11:24 Urine WBC 0-2 /HPF (0-5) 08/03/21 11:24 Ur Squamous Epith Cells Rare /HPF (NEGATIVE) 08/03/21 11:24 Amorphous Sediment Trace /HPF (NEGATIVE) 08/03/21 11:24 Urine Bacteria Negative /HPF (NEGATIVE) 08/03/21 11:24 Ur Culture Indicated? No/not indicated 08/03/21 11:24 SARS-CoV-2 (PCR) Negative (NEGATIVE) 08/03/21 15:30 - Plan (1) Viral gastroenteritis Status: Acute Plan: D5/12 NS AT 80 ML/HR, THE POTASSIUM AND MAGNESIUM PROTOCOLS, PEPCID 20MG IV Q12H, CLONIDINE 0.2MG/HR TD PATCH, PROTONIX 40MG IV BID, PHENERGAN 25MG IM Q6H PRN, ZOFRAN 4MG IV Q6H PRN, AND HER HOME MEDICATIONS OF NORVASC, LANTUS, XALATAN DROPS, TOPROL, ZANAFLEX, AND ULTRAM WERE RESUMED. (2) Hypertensive urgency Status: Acute (3) Abdominal pain Status: Acute Qualifiers: Abdominal location: generalized Qualified Code(s): R10.84 - Generalized abdominal pain (4) Nausea and vomiting Status: Acute Qualifiers: Vomiting type: unspecified Qualified Code(s): R11.2 - Nausea with vomiting, unspecified (5) Diabetes mellitus Status: Chronic Qualifiers: Diabetes mellitus type: type 2 Diabetes mellitus senior care insulin use: with continuous churn buttermaker use Diabetes mellitus complication status: with hyperglycemia Qualified Code(s): E11.65 - Type 2 diabetes mellitus with hyperglycemia; Z79.4 - [facility]FP (current) use of insulin
--- NOTE | 2021-08-05 14:35 | US ---
HISTORY: Abdominal pain and nausea.Study: Right upper quadrant abdominal ultrasoundComparison: None available.Technique: Multiple bryan scale and color flow Doppler images of the right upper quadrant were obtained.Findings:The liver is heterogeneously echogenic/fatty in appearance. No focal intraparenchymal mass or intrahepatic biliary ductal dilatation can be observed. [The gallbladder fails to demonstrate evidence for cholelithiasis or layering sludge]. The common bile duct is unremarkable measuring 3 mm. [No pericholecystic fluid or gallbladder wall thickening can be observed]. The CBD measures [within normal limits]. There is a right-sided hypoechoic 19 mm renal cyst observed. The right kidney appears normal in size without focal parenchymal mass or nephrolithiasis. The right kidney measurers 11 x 5 x 5 cm. No hydronephrosis or perirenal fluid can be observed. The pancreas is largely obscured by overlying bowel gas.IMPRESSION:The liver is heterogeneously echogenic/fatty in appearance, suggesting hepatic steatosis.Hypoechoic right-sided 19 x 15 mm simple renal cyst. No other RUQ abnormalities are observed.Electronically signed by: RAMÓN HARTMAN III (Aug 05, 2021 14:33:18)
[2021-08-05 16:42] LABS: CREATINE KINASE 50 Units/L (26-192); CREATINE KINASE MB < 1.0 ng/mL (0-4.0)
[2021-08-05 19:45] LABS: CKMB % 2.9 % (<4); CREATINE KINASE MB 1.2 ng/mL (0-4.0)
[2021-08-05] MEDS: LANTUS SC SCH (20:26)
[2021-08-05] MEDS: NORVASC TAB 10 MG PO SCH (20:33)
[2021-08-05] MEDS: XALATAN OP SCH (20:35)
[2021-08-05] MEDS: ZANAFLEX PO SCH (20:37)
[2021-08-05] MEDS: COLACE CAP 100 MG PO PRN (20:38)
[2021-08-06] MEDS: ULTRAM PO PRN (03:52)
[2021-08-06 05:04] LABS: BASOPHILS # (AUTO) 0.1 X10^3/uL (0.0-0.1); BASOPHILS % (AUTO) 0.8 % (0.2-1.0); EOSINOPHILS # (AUTO) 0.2 x10^3/uL (0.0-0.2); EOSINOPHILS % (AUTO) 3.4 % (0.9-2.9); HEMATOCRIT 27.3 % (36.0-47.0); HEMOGLOBIN 9.5 g/dL (12.0-16.0); LYMPHOCYTES # (AUTO) 2.9 X10^3/uL (1.3-2.9); LYMPHOCYTES % (AUTO) 40.5 % (21.0-51.0); MEAN CORPUSCULAR HGB CONC 34.9 g/dL (33.0-35.0); MONOCYTES # (AUTO) 0.8 x10^3/uL (0.3-0.8); MONOCYTES % (AUTO) 10.7 % (0.0-13.0); NEUTROPHILS # (AUTO) 3.2 x10^3/uL (2.2-4.8); NEUTROPHILS % (AUTO) 44.6 % (42.0-75.0); RED BLOOD COUNT 3.18 X10^6/uL (3.5-5.4); WHITE BLOOD COUNT 7.2 X10^3/uL (3.6-10.0)
[2021-08-06 05:18] LABS: ALANINE AMINOTRANSFERASE 15 Units/L (12-78); ALBUMIN 2.9 g/dL (3.4-5.0); ALKALINE PHOSPHATASE 69 Units/L (46-116); ASPARTATE AMINO TRANSFERASE 13 Units/L (15-37); BLOOD UREA NITROGEN 7 mg/dL (7-18); CALCIUM 8.7 mg/dL (8.5-10.1); CARBON DIOXIDE 25.9 mmol/L (21-32); CHLORIDE 101 mmol/L (98-107); COR CA(FOR HYPOALB) 9.6 mg/dL (8.5-10.1); CREATININE 0.81 mg/dL (0.55-1.02); SODIUM 133 mmol/L (136-145); TOTAL PROTEIN 5.8 g/dL (6.4-8.2); eGFR NON BLACK RACES > 60 (>60)
[2021-08-06] MEDS: NYSTATIN POWDER TOP SCH (08:00)
[2021-08-06] MEDS: PEPCID 20 MG VIAL 20 MG in NS 50 ML IV 50 ML IV SCH (08:00)
[2021-08-06] MEDS: CHECK PATCH XX SCH (08:00)
[2021-08-06] MEDS: PROTONIX INJ 40 MG VIAL IVP SCH (08:01)
[2021-08-06] MEDS: TOPROL XL PO SCH (08:01)
[2021-08-06] MEDS: D5 1/2 NS 1,000 ML 1,000 ML IV SCH (10:06)
--- NOTE | 2021-08-06 10:43 | RAD ---
HISTORYAbdominal painSTUDYKUBCOMPARISONNoneFIND INGSAbdominal gas pattern is nonspecific and nonobstructive. No abnormal masses or abnormal calcifications are identified. Regional skeleton is intact.IMPRESSIONUnremarkable KUBElectronically signed by: VITOR MCDONALD (Aug 06, 2021 10:41:48)
[2021-08-06 12:56] VITALS: BP 159/67
== END 2021-08-06 12:56 | disposition home or self-care (01) | DRG 305 ==
LOC: ICU 09:41 → ER 09:41 → ICU 16:17
PROVIDERS: ADMIT Internal Medicine; ATTEND Internal Medicine
DX: R51.9 Headache, unspecified; R53.1 Weakness; E87.1 Hypo-osmolality and hyponatremia; I25.10 Atherosclerotic heart disease of native coronary artery without angina pectoris; R10.30 Lower abdominal pain, unspecified; Z86.73 Personal history of transient ischemic attack (TIA), and cerebral infarction without residual deficits; Z79.4 Long term (current) use of insulin; A08.39 Other viral enteritis; I16.0 Hypertensive urgency; E11.65 Type 2 diabetes mellitus with hyperglycemia; Z20.822 Contact with and (suspected) exposure to COVID-19; R19.7 Diarrhea, unspecified